=== PATIENT | female | born 1940 | race Caucasian/White ===

== ENCOUNTER → 2019-08-16 | Outpatient (CLI) | payer MEDICARE, OTHER ==
[~2019-08-16] MED LIST: ASPI325 PO; LEVSOD100 PO; OXYACE5T PO
[2019-08-16 14:38] LABS: Source, Urine Catheter
[2019-08-16 15:31] LABS: Blood, Urine 2+ (Neg); Glucose Qualitative, Urine Neg (Neg); Ketones, Urine Neg (Neg); Leukocyte Esterase, Urine 2+ (Neg); Nitrite, Urine Pos (Neg); Protein, Urine 2+ (Neg); Urobilinogen, Urine 4+ (Normal)
[2019-08-16 15:38] LABS: Appearance, Urine Cloudy (Clear); Bilirubin, Urine 3+ (Neg); Color, Urine Orange (P-Yellow); White Blood Cells, Urine TNTC /hpf (0-5)
[2019-08-16 15:39] LABS: Bacteria Mod /hpf; Squamous Epithelial Cells Few /hpf (Few)
== END | disposition home or self-care (01) ==
LOC: LAB SHORT 12:12 → LAB 12:12
PROVIDERS: Nurse Practitioner Women's Health
DX: R35.0 Frequency of micturition (principal); R30.0 Dysuria
CPT/HCPCS: 81001; 87086

== ENCOUNTER → 2019-08-20 | Outpatient (CLI) | payer MEDICARE, OTHER ==
[2019-08-22 15:07] LABS: HPV 16 Negative (Negative); HPV 18 Negative (Negative); HPV OTHER HR TYPES Negative (Negative)
== END | disposition home or self-care (01) ==
LOC: LAB 19:12 → LAB SHORT 19:12
PROVIDERS: Nurse Practitioner Women's Health
DX: Z12.4 Encounter for screening for malignant neoplasm of cervix (principal); Z91.89 Other specified personal risk factors, not elsewhere classified
CPT/HCPCS: 87624; G0123

== ENCOUNTER 2021-02-17 10:42 | Day surgery (SDC) | payer MEDICARE, OTHER ==
[~2021-02-17] VITALS: Ht 160 cm; Wt 103.6 kg
[~2021-02-17 10:42] MED LIST changes: +Aspir 8181 MG PO; +Estrace Vagin42.5 GM VAG; +LEVO-T50 MC1 PO
[2021-02-17] MEDS ORDERED: NASACORT10.8 ML (11:05)
[2021-02-17] MEDS ORDERED: IPRATROPIUM BRO30 ML (11:06)
== END 2021-02-17 12:40 | disposition home or self-care (01) ==
LOC: ORSCSDS 10:42
PROVIDERS: Internal Medicine Gastroenterology
PROC: 0DJD8ZZ Inspection of Lower Intestinal Tract, Via Natural or Artificial Opening Endoscopic (ICD-10-PCS; principal; 2021-02-17 12:00)
DX: Z12.11 Encounter for screening for malignant neoplasm of colon (principal); Z80.0 Family history of malignant neoplasm of digestive organs; K57.30 Diverticulosis of large intestine without perforation or abscess without bleeding; K64.8 Other hemorrhoids; K64.4 Residual hemorrhoidal skin tags; Z79.82 Long term (current) use of aspirin; Z79.899 Other long term (current) drug therapy; E78.5 Hyperlipidemia, unspecified; G47.33 Obstructive sleep apnea (adult) (pediatric); E03.9 Hypothyroidism, unspecified; Z87.891 Personal history of nicotine dependence; E66.01 Morbid (severe) obesity due to excess calories; Z68.41 Body mass index [BMI] 40.0-44.9, adult
CPT/HCPCS: J2704; J7120

== ENCOUNTER 2021-08-27 11:11 | Day surgery (SDC) | payer MEDICARE, OTHER ==
[~2021-08-27] VITALS: Ht 160 cm; Wt 101.2 kg
[~2021-08-27 11:11] MED LIST changes: +IPRATROPIUM BRO30 ML; +NASACORT10.8 ML
== END 2021-08-27 12:50 | disposition home or self-care (01) ==
LOC: ORSCSDS 11:11
PROVIDERS: Internal Medicine Gastroenterology
PROC: 0DB68ZX Excision of Stomach, Via Natural or Artificial Opening Endoscopic, Diagnostic (ICD-10-PCS; principal; 2021-08-27 12:30)
PROC: 0D758ZZ Dilation of Esophagus, Via Natural or Artificial Opening Endoscopic (ICD-10-PCS; principal; 2021-08-27 12:30)
DX: R13.10 Dysphagia, unspecified (principal); K21.9 Gastro-esophageal reflux disease without esophagitis; E66.9 Obesity, unspecified; Z68.41 Body mass index [BMI] 40.0-44.9, adult; Z79.82 Long term (current) use of aspirin; Z79.899 Other long term (current) drug therapy
CPT/HCPCS: 88305; 88342; J0330; J0461; J2405; J2704; J7120

== ENCOUNTER → 2022-04-19 | Outpatient (CLI) | payer MEDICARE, OTHER | END | disposition home or self-care (01) | LOC: LAB SHORT 14:00 → LAB 14:00 | DX: R30.0 Dysuria (principal) | CPT/HCPCS: 87077; 87086; 87186 ==

== ENCOUNTER → 2022-06-13 | Outpatient (CLI) | payer MEDICARE, OTHER | END | disposition home or self-care (01) | LOC: LAB SHORT 13:05 → LAB 13:05 | DX: N39.498 Other specified urinary incontinence (principal) | CPT/HCPCS: 87086; 87147 ==

== ENCOUNTER → 2022-11-03 | Outpatient (CLI) | payer MEDICARE, OTHER | END | disposition home or self-care (01) | LOC: LAB SHORT 16:20 → LAB 16:20 | DX: N39.0 Urinary tract infection, site not specified (principal) | CPT/HCPCS: 87077; 87086; 87147; 87186 ==

== ENCOUNTER → 2023-10-20 | Outpatient (CLI) | payer MEDICARE, OTHER | LOC: LAB SHORT 16:20 → LAB 16:20 | DX: R39.81 Functional urinary incontinence (principal) | CPT/HCPCS: 87086 ==